=== PATIENT | male | born 1970 | race Hispanic/Latino ===

== ENCOUNTER 2017-03-24 16:32 | Emergency (ER) | payer OTHER ==
[2017-03-24 16:32] VITALS: BMI 37.4
[2017-03-24 16:44] VITALS: O2SAT 96
[2017-03-24] MEDS ORDERED: Tmp-Smz 800 mg-160 mg DS Tab PO STA (16:59)
[2017-03-24 17:03] VITALS: BP 123/79; PULSE 121; RESP 18; TEMP 98.1
--- NOTE | 2017-03-24 18:15 | C.PDOC ---
History Of Present Illness Patient is a 46 year old male who presents to the ER with a complaint of an tender abscess to the left thumb which he noticed today. 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 Denies trauma, fever, or chills. Time Seen by Provider: 03/24/17 16:48 Chief Complaint (Nursing): Abnormal Skin Integrity History Per: Patient History/Exam Limitations: no limitations Onset/Duration Of Symptoms: Hrs Current Symptoms Are (Timing): Still Present Location Of Injury: Left: Hand (Thumb) Quality Of Symptoms: Painful Recent travel outside of the [place]: No Past Medical History Reviewed: Historical Data, Nursing Documentation, Vital Signs Vital Signs: Last Vital Signs Temp 98.1 F 03/24/17 17:03 Pulse 121 H 03/24/17 17:03 Resp 18 03/24/17 17:03 BP 123/79 03/24/17 17:03 Pulse Ox 96 03/24/17 18:23 - Medical History PMH: No Chronic Diseases Surgical History: No Surg Hx - [facility] Procedures CLOSURE SKIN & SUBCUTANEOUS NEC (07/06/03) TETANUS TOXOID ADMINIST (07/06/03) Family History: States: Unknown Family Hx - Social History Hx Tobacco Use: Yes Hx Alcohol Use: No Hx Substance Use: Yes - Immunization History Hx Tetanus Toxoid Vaccination: (unk) Hx Influenza Vaccination: No Hx Pneumococcal Vaccination: No Review Of Systems Constitutional: Negative for: Fever, Chills Skin: Positive for: Other (Abscess) Physical Exam - Physical Exam Appears: Non-toxic, No Acute Distress Skin: Warm, Dry, Other (1cm abscess to dorsal aspect between 1st and 2nd digit.) Head: Atraumatic, Normacephalic Oral Mucosa: Moist Extremity: Normal ROM (x4), No Tenderness, No Deformity Pulses: Left Radial: Normal, Right Radial: Normal Neurological/Psych: Oriented x3, Normal Speech, Normal Cognition ED Course And Treatment O2 Sat by Pulse Oximetry: 96 (Room air) Pulse Ox Interpretation: Normal Progress Note: Bactrim administered. Wound culture ordered. - Incision & Drainage Of Abscess Prep Used: Sterile Water Procedure: Drained Pus (w/ 20 gauge needle) Disposition - Disposition Referrals: [facility] [Outside] [facility] [Outside] Disposition: HOME/ ROUTINE Disposition Time: 17:00 Condition: GOOD Additional Instructions: Thank you for letting us take care of you today. Your provider was Dr. Ferro. You were treated for an abscess. The emergency medical care you received today was directed at your acute symptoms. If you were prescribed any medication, please fill it and take as directed. It may take several days for your symptoms to resolve. Return to the Emergency Department if your symptoms worsen, do not improve, or if you have any other problems. Please contact your doctor or call one of the physicians/clinics you have been referred to that are listed on the Patient Visit Information form that is included in your discharge packet. Bring any paperwork you were given at discharge with you along with any medications you are taking to your follow up visit. Our treatment cannot replace ongoing medical care by a primary care provider (PCP) outside of the emergency department. Thank you for allowing the [facility] team to be part of your care today. Follow up with the clinic next week for re-evaluation. Prescriptions: Sulfamethoxazole/Trimethoprim [Bactrim DS 800 mg-160 mg] 1 tab PO Q12 #14 tab Instructions: Abscess (ED) - Clinical Impression Clinical Impression: Abscess - Scribe Statement The provider has reviewed the documentation as recorded by the Scribe Jose Esparza All medical record entries made by the Bartibsusan were at my direction and personally dictated by me. I have reviewed the chart and agree that the record accurately reflects my personal performance of the history, physical exam, medical decision making, and the department course for this patient. I have also personally directed, reviewed, and agree with the discharge instructions and disposition.
== END 2017-03-24 17:10 | disposition home or self-care (01) ==
LOC: C.ER 16:32
DX: L02.512 Cutaneous abscess of left hand (principal); Z72.0 Tobacco use

== ENCOUNTER 2017-04-17 11:42 | Emergency (ER) | payer OTHER ==
[2017-04-17 11:42] VITALS: BMI 37.4
[2017-04-17 11:46] VITALS: TEMP 98.9; O2SAT 98
[2017-04-17] MEDS ORDERED: Naproxen 550 mg Tab PO STA (12:01)
[2017-04-17] MEDS ORDERED: Lidocaine 1% w Epi 1:100,000 Inj INJ ONE (12:01)
[2017-04-17] MEDS ORDERED: Oxycodone/Acetaminophen 5/325 mg Tab PO STA (12:01)
[2017-04-17] MEDS ORDERED: Oxycodone/Acetaminophen 5/325 mg Tab ONE (12:06)
[2017-04-17] MEDS ORDERED: Lidocaine 1% w Epi 1:100,000 Inj ONE (12:06)
[2017-04-17] MEDS ORDERED: Naproxen 550 mg Tab PO ONE (12:07)
--- NOTE | 2017-04-17 13:00 | C.PDOC ---
History Of Present Illness 46 y/o male presents to ED with complaints of right armpit lump for 4 days. (+) h/o boils in the past, no I&D. Patient denies fever, trauma, SOB or any other complaints at this time. Time Seen by Provider: 04/17/17 11:50 Chief Complaint (Nursing): Abnormal Skin Integrity History Per: Patient History/Exam Limitations: no limitations Onset/Duration Of Symptoms: Days Current Symptoms Are (Timing): Still Present Past Medical History Reviewed: Historical Data, Nursing Documentation, Vital Signs Vital Signs: Last Vital Signs Temp 98.9 F 04/17/17 11:46 Pulse 84 04/17/17 13:08 Resp 16 04/17/17 13:08 BP 125/78 04/17/17 13:08 Pulse Ox 98 04/17/17 14:37 - [facility] Procedures CLOSURE SKIN & SUBCUTANEOUS NEC (07/06/03) TETANUS TOXOID ADMINIST (07/06/03) Family History: States: Unknown Family Hx - Social History Hx Tobacco Use: Yes Hx Alcohol Use: No Hx Substance Use: No - Immunization History Hx Tetanus Toxoid Vaccination: No Hx Influenza Vaccination: No Hx Pneumococcal Vaccination: No Review Of Systems Except As Marked, All Systems Reviewed And Found Negative. Constitutional: Negative for: Fever, Chills Gastrointestinal: Negative for: Nausea, Vomiting, Diarrhea Physical Exam - Physical Exam Appears: Non-toxic, No Acute Distress Skin: Warm Head: Atraumatic, Normacephalic Eye(s): bilateral: Normal Inspection, EOMI Nose: Normal Lymphatic: No Adenopathy, Other (Tender 2x3 cm lump with erythema and flunctuance to right axilla) Chest: Symmetrical Cardiovascular: Rhythm Regular Respiratory: Normal Breath Sounds Neurological/Psych: Oriented x3, Normal Speech ED Course And Treatment O2 Sat by Pulse Oximetry: 98 (RA ) Pulse Ox Interpretation: Normal Progress Note: Discussed wound care and wound check in 2 days. - Incision & Drainage Of Abscess Anesthesia: Lidocaine 1%, With Epi Prep Used: Sterile Water, Betadine Procedure: Incised W/Scalpel Blade#: (11), Drained Pus, Irrigated Cavity W/ Saline, Probed To Break Up Loculations, Packed W/Gauze, Cultures Obtained And Sent To Lab Disposition - Disposition Disposition: HOME/ ROUTINE Disposition Time: 12:57 Condition: STABLE Additional Instructions: Keep area clean and dry. Return in 2 days for wound check. Prescriptions: Cephalexin [cephalexin] 500 mg PO BID #14 cap Naproxen [Naprosyn] 1 tab PO BID PRN #20 tab PRN Reason: Pain Sulfamethoxazole/Trimethoprim [Bactrim DS 800 mg-160 mg] 1 tab PO BID #14 tab Instructions: Abscess Incision and Drainage (ED) Forms: Work Excuse - Clinical Impression Clinical Impression: Incisional abscess - Scribe Statement The provider has reviewed the documentation as recorded by the Hugo Meehan All medical record entries made by the Hugo were at my direction and personally dictated by me. I have reviewed the chart and agree that the record accurately reflects my personal performance of the history, physical exam, medical decision making, and the department course for this patient. I have also personally directed, reviewed, and agree with the discharge instructions and disposition.
[2017-04-17] MEDS ORDERED: Tmp-Smz 800 mg-160 mg DS Tab PO STA (13:01)
--- NOTE | 2017-04-17 13:01 | C.PDOC ---
Time Seen by Provider: 04/17/17 11:50 Chief Complaint (Nursing): Abnormal Skin Integrity Past Medical History Vital Signs: Last Vital Signs Temp 98.9 F 04/17/17 11:46 Pulse 101 H 04/17/17 11:46 Resp 18 04/17/17 11:46 BP 145/88 04/17/17 11:46 Pulse Ox 98 04/17/17 13:01 - [facility] Procedures CLOSURE SKIN & SUBCUTANEOUS NEC (07/06/03) TETANUS TOXOID ADMINIST (07/06/03) Family History: States: Unknown Family Hx - Social History Hx Tobacco Use: Yes Hx Alcohol Use: No Hx Substance Use: No - Immunization History Hx Tetanus Toxoid Vaccination: No Hx Influenza Vaccination: No Hx Pneumococcal Vaccination: No ED Course And Treatment O2 Sat by Pulse Oximetry: 98 Disposition - Disposition Additional Instructions: Keep area clean and dry. Return in 2 days for wound check. Prescriptions: Cephalexin [cephalexin] 500 mg PO BID #14 cap Naproxen [Naprosyn] 1 tab PO BID PRN #20 tab PRN Reason: Pain Sulfamethoxazole/Trimethoprim [Bactrim DS 800 mg-160 mg] 1 tab PO BID #14 tab Instructions: Abscess Incision and Drainage (ED) Forms: Work Excuse
[2017-04-17] MEDS ORDERED: Tmp-Smz 800 mg-160 mg DS Tab ONE (13:07)
[2017-04-17 13:08] VITALS: BP 125/78; PULSE 84; RESP 16
== END 2017-04-17 13:08 | disposition home or self-care (01) ==
LOC: C.ER 11:42
DX: L02.411 Cutaneous abscess of right axilla (principal)

== ENCOUNTER 2017-04-18 14:02 | Emergency (ER) | payer OTHER ==
[2017-04-18 14:03] VITALS: BMI 37.4
[2017-04-18 14:18] VITALS: BP 119/77; PULSE 84; RESP 20; TEMP 98.4; O2SAT 99
--- NOTE | 2017-04-18 14:31 | C.PDOC ---
History Of Present Illness 46 yr old male presents to the ER requesting dressing change.Patient is s/p I&D in the right axillary area. Patient was advised to come in tomorrow for a dressing change but states " didn't have the right supply". Patient denies fever , chest pain, SOB, nausea, vomiting, back pain, weakness or numbness. Time Seen by Provider: 04/18/17 14:23 Chief Complaint (Nursing): Wound Check History Per: Patient History/Exam Limitations: no limitations Onset/Duration Of Symptoms: Days Ago Past Medical History Reviewed: Historical Data, Nursing Documentation, Vital Signs Vital Signs: Last Vital Signs Temp 98.4 F 04/18/17 14:14 Pulse 84 04/18/17 14:14 Resp 20 04/18/17 14:14 BP 119/77 04/18/17 14:14 Pulse Ox 99 04/18/17 14:49 - [facility] Procedures CLOSURE SKIN & SUBCUTANEOUS NEC (07/06/03) TETANUS TOXOID ADMINIST (07/06/03) Family History: States: No Known Family Hx - Social History Hx Tobacco Use: Yes Hx Alcohol Use: No Hx Substance Use: No - Immunization History Hx Tetanus Toxoid Vaccination: No Hx Influenza Vaccination: No Hx Pneumococcal Vaccination: No Review Of Systems Except As Marked, All Systems Reviewed And Found Negative. Constitutional: Negative for: Fever Cardiovascular: Negative for: Chest Pain Respiratory: Negative for: Shortness of Breath Gastrointestinal: Negative for: Nausea, Vomiting Musculoskeletal: Negative for: Back Pain Skin: Positive for: Other (Dressing change for I&D in the right axillary area ) Neurological: Negative for: Weakness, Numbness Physical Exam - Physical Exam Appears: Non-toxic, No Acute Distress Skin: Warm, Dry, Other (Right Axillary - Packing intact. No signs of infections. No cellulities. No discharge. ) Head: Atraumatic, Normacephalic Extremity: Normal ROM, No Tenderness, Capillary Refill (<2), No Swelling Neurological/Psych: Oriented x3, Normal Speech, Normal Motor ED Course And Treatment O2 Sat by Pulse Oximetry: 99 (RA ) Pulse Ox Interpretation: Normal Medical Decision Making Medical Decision Making: NOTE: Packing was changed. Patient is advised to return as previously advised. Disposition Counseled Patient/Family Regarding: Diagnosis, Need For Followup - Disposition Referrals: [facility] [Provider Group] Disposition: HOME/ ROUTINE Disposition Time: 14:31 Condition: IMPROVED Additional Instructions: return as PREVIOUSLY INSTRUCTED FOR PACKING CHANGE Forms: General Discharge Instructions - Clinical Impression Clinical Impression: Wound check, abscess - Scribe Statement The provider has reviewed the documentation as recorded by the Bartibe Denisa Hughes Provider Attestation: All medical record entries made by the Bartibe were at my direction and personally dictated by me. I have reviewed the chart and agree that the record accurately reflects my personal performance of the history, physical exam, medical decision making, and the department course for this patient. I have also personally directed, reviewed, and agree with the discharge instructions and disposition.
== END 2017-04-18 14:56 | disposition home or self-care (01) ==
LOC: C.ER 14:02
DX: Z48.00 Encounter for change or removal of nonsurgical wound dressing (principal)

== ENCOUNTER 2017-08-04 10:41 | Emergency (ER) | payer SELFPAY ==
[2017-08-04 10:42] VITALS: BMI 37.4
[2017-08-04 10:59] VITALS: O2SAT 98
[2017-08-04] MEDS ORDERED: Bacitracin 500 Units/gm Oint Foilpak UD TOP ONE (11:05)
[2017-08-04] MEDS ORDERED: Naproxen 550 mg Tab PO STA (11:05)
[2017-08-04] MEDS ORDERED: Tmp-Smz 800 mg-160 mg DS Tab PO STA (11:10)
[2017-08-04] MEDS ORDERED: Bacitracin 500 Units/gm Oint Foilpak UD ONE (11:13)
[2017-08-04] MEDS ORDERED: Naproxen 550 mg Tab PO ONE (11:13)
[2017-08-04] MEDS ORDERED: Tmp-Smz 800 mg-160 mg DS Tab ONE (11:15)
--- NOTE | 2017-08-04 11:41 | C.PDOC ---
History Of Present Illness 47 yo male c/o "boils" to his 3rd finger x 3 days. Notes it started like a pimple but increased in size. Notes same thing happened on his 2nd finger but it drained on its own yesterday. 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 No trauma, change in sensation, fever, known PMH or other complaints. Right hand dominant. Time Seen by Provider: 08/04/17 11:00 Chief Complaint (Nursing): Abnormal Skin Integrity History Per: Patient History/Exam Limitations: no limitations Onset/Duration Of Symptoms: Days Current Symptoms Are (Timing): Still Present Quality Of Symptoms: Painful, Swollen Past Medical History Vital Signs: Last Vital Signs Temp 97.9 F 08/04/17 10:57 Pulse 88 08/04/17 10:57 Resp 16 08/04/17 10:57 BP 136/87 08/04/17 10:57 Pulse Ox 98 08/04/17 11:44 - [facility] Procedures CLOSURE SKIN & SUBCUTANEOUS NEC (07/06/03) TETANUS TOXOID ADMINIST (07/06/03) Family History: States: Unknown Family Hx - Social History Hx Tobacco Use: Yes Hx Alcohol Use: No Hx Substance Use: No - Immunization History Hx Tetanus Toxoid Vaccination: No Hx Influenza Vaccination: No Hx Pneumococcal Vaccination: No Review Of Systems Except As Marked, All Systems Reviewed And Found Negative. Constitutional: Negative for: Fever Musculoskeletal: Positive for: Hand Pain Physical Exam - Physical Exam Appears: Well, Non-toxic, No Acute Distress Skin: Other (Left 2nd finger dorsal ascept MCP: 2 cm open wound; no active drainage ; Left 3rd finger dorsal ascept MCP: 3 cm area of fluctuance and tenderness ; surrounding erythema extending half way up the dorsal aspect of hand ; No streaking) Head: Atraumatic, Normacephalic Eye(s): bilateral: Normal Inspection, EOMI Nose: Normal Oral Mucosa: Moist Neck: Normal ROM, Supple Chest: Symmetrical Respiratory: Accessory Muscle Use Extremity: Normal ROM, Tenderness, Capillary Refill (< 2 sec), Swelling Pulses: Left Radial: Normal, Right Radial: Normal Neurological/Psych: Oriented x3, Normal Speech, Normal Motor, Normal Sensation ED Course And Treatment O2 Sat by Pulse Oximetry: 98 Progress Note: Case disucssed and pt evaluated by Dr Fairchild, agreed upon plan and treatment. Pt instructed wound check in 2 days and discussed wound care. - Incision & Drainage Of Abscess Prep Used: Sterile Water, Betadine Procedure: Incised W/Scalpel Blade#: (11), Drained Pus, Irrigated Cavity W/ Saline, Probed To Break Up Loculations, Cultures Obtained And Sent To Lab Disposition - Disposition Disposition: HOME/ ROUTINE Disposition Time: 11:48 Condition: STABLE Additional Instructions: Wound check in 2 days. Return to ER if symptoms persist or worsen including redness, swelling an discharge. Prescriptions: Mupirocin 2% Ointment [Bactroban Ointment] 1 appl TP TID #1 tube Sulfamethoxazole/Trimethoprim [Bactrim DS 800 mg-160 mg] 1 tab PO BID #14 tab Instructions: Abscess Incision and Drainage (ED) Forms: [facility] (Icelandic), Work Excuse - Clinical Impression Clinical Impression: Abscess
[2017-08-04 11:47] VITALS: BP 124/75; PULSE 75; RESP 18; TEMP 98.2
== END 2017-08-04 11:46 | disposition home or self-care (01) ==
LOC: C.ER 10:41
DX: L02.512 Cutaneous abscess of left hand (principal)